=== PATIENT | female | born 1955 | race Caucasian/White ===

== ENCOUNTER 2016-10-01 19:13 | Emergency (ER) | payer MEDICARE, MEDICAID ==
[2016-10-01 19:42] VITALS: TEMP 98.6; BMI 24.2
--- NOTE | 2016-10-01 20:39 | DIRPT ---
CLINICAL DATA: 61-year-old female with fall and left hip pain. EXAM: LEFT HIP (WITH PELVIS) 2-3 VIEWS COMPARISON: None. FINDINGS: There is no acute fracture or dislocation. There are bilateral osteoarthritic changes of the hips, more prominent on the right. Go a single surgical clips noted in the left hemipelvis. Moderate stool noted in the rectosigmoid. IMPRESSION: No acute fracture or dislocation. Electronically Signed By: Rashad Desai M.D. On: 10/01/2016 20:36
--- NOTE | 2016-10-01 21:28 | EDPRACDOC ---
- General Information Chief Complaint: Lower Leg Pain Stated Complaint: LEG PAIN, NO INJURY Time Seen by Provider: 10/01/16 20:01 Information Source: Patient Mode Of Arrival: Car Home Medications: Home Medications Simvastatin 40 mg PO DAILY 03/27/15 Fluoxetine HCl [Prozac] 80 mg PO DAILY 07/17/15 Cetirizine HCl [Zyrtec] 10 mg PO DAILY 10/12/15 Bupropion HCl [Bupropion HCl Sr] 200 mg PO BID 03/22/16 Buspirone HCl [Buspar] 10 mg PO TID 03/22/16 Dextroamphetamine/Amphetamine [Adderall Xr 20 mg Capsule] 20 mg PO DAILY Mometasone Furoate [Nasonex] 17 gm HERBER DAILY 03/22/16 Dextroamphetamine/Amphetamine [Adderall Xr 10 mg Capsule] 10 mg PO DAILY Lisinopril [Prinivil] 10 mg PO DAILY 05/24/16 Meloxicam [Mobic] 15 mg PO DAILY 05/24/16 Oxycodone HCl/Acetaminophen [Percocet 5-325 mg Tablet] 1 - 2 tab PO Q4H PRN #30 tab 05/25/16 Cyclobenzaprine HCl [Flexeril] 10 mg PO TID #21 tab 10/01/16 Prednisone [Deltasone, Orasone] 2 tabs PO DAILY #20 tab 10/01/16 Allergies/Adverse Reactions: Allergies Allergy/AdvReac Type Severity Reaction Status Date / Time No Known Allergies Allergy Verified 03/23/16 12:46 - History of Present Illness Onset: 3-4 weeks ago HPI: PT PRESENTS TODAY WITH LOW BACK PAIN X 3 WEEKS. PT STATES THAT SHE WAS ON A SWING AND SLIPPED OFF, FALLING ABOUT 1 FOOT TO THE GROUND. STATES PAIN RADIATES FROM HER LEFT HIP TO LEFT THIGH. DENIES URINARY SYMPTOMS, INCONTINENCE, RASHES, ABD PAIN. PT AMBULATES BACK AND FORTH TO THE BATHROOM WITH ONLY MILDLY EXPRESSED PAIN IN HER GAIT. Pain Location: Reports: Left, Buttock Pain Radiates To: Reports: Thigh Pain Caused By: Reports: Fall Relevant History: Reports: None Pain Severity: Reports: Moderate Pain Quality: Reports: Aching, Sharp Worsened By: Reports: Walking Associated Signs and Symptoms: Reports: None ED Past Medical History - History Reviewed Yes Nurses notes reviewed and agree except as marked - Patient Medical History Neurological History: Reports: Migraine Cardiac History: Reports: Hypertension, Hypercholesterolemia Respiratory History: Reports: Asthma Psychological History: Reports: Depression, Anxiety Surgical History: Reports: Hysterectomy, Tonsillectomy/Adnoidectomy, Other (BTL) . Denies: Cholecystectomy - Social Medical History Smoking Status: Never smoker EDM Review of Systems - Review of Systems ROS Negative Except as Marked: Yes All systems reviewed and were negative except as marked Constitutional: No Symptoms Reported Respiratory: No Symptoms Reported Cardiovascular: No Symptoms Reported Gastrointestinal: No Symptoms Reported Genitourinary: No Symptoms Reported Neurological: No Symptoms Reported Musculoskeletal: Back Integumentary: No Symptoms Reported - Physical Exam Constitutional: Alert (Awake), No apparent distress Oriented to: Time, Person, Place Last recorded Vital Signs: Last Vital Signs Temp 98.6 F 10/01/16 19:40 Pulse 90 10/01/16 19:40 Resp 18 10/01/16 19:40 BP 117/69 10/01/16 19:40 Pulse Ox 92 10/01/16 19:40 Oxygen Pulse Oxygen Saturation 92 O2 Device Room Air Oxygen Flow Rate Fraction of Inspired Oxygen ( FIO2) - HEENT Head: Normal Eye Exam: Normal Neck: Normal, Denies Pain, Midline - Respiratory/Cardiovascular Respiratory: Normal - CTA Cardiovascular: Normal - GI Palpation: Normal Tenderness: Non tender - Musculoskeletal Back: Lumbar TTP, No Palpable Step-off Extremities: Normal - Integumentary Skin: Normal Lymphatics: Normal - Neurologic Cerebellar: Normal Mood Description: Normal Thought: Coherent Perception: Normal Decision Time to Discharge: 21:27 - Departure Disposition: Home Condition: Good Final Diagnosis: Lumbar radiculopathy Instructions: Sciatica (ED) Education/Counseling Given To: Patient Education/Counseling Given Regarding: Diagnosis, Treatment, Follow Up Referrals: Nancy Eldridge MD [Primary Care Provider] - One Week Prescriptions: New Cyclobenzaprine HCl [Flexeril] 10 mg PO TID #21 tab Prednisone [Deltasone, Orasone] 2 tabs PO DAILY #20 tab No Action Simvastatin 40 mg PO DAILY Fluoxetine HCl [Prozac] 80 mg PO DAILY Cetirizine HCl [Zyrtec] 10 mg PO DAILY Buspirone HCl [Buspar] 10 mg PO TID Bupropion HCl [Bupropion HCl Sr] 200 mg PO BID Mometasone Furoate [Nasonex] 17 gm HERBER DAILY Dextroamphetamine/Amphetamine [Adderall Xr 20 mg Capsule] 20 mg PO DAILY Meloxicam [Mobic] 15 mg PO DAILY Lisinopril [Prinivil] 10 mg PO DAILY Dextroamphetamine/Amphetamine [Adderall Xr 10 mg Capsule] 10 mg PO DAILY Oxycodone HCl/Acetaminophen [Percocet 5-325 mg Tablet] 1 - 2 tab PO Q4H PRN # 30 tab PRN Reason: Pain Additional Instructions: HEATING PADS TO LOWER BACK TO HELP WITH PAIN. FOLLOW UP WITH PCP IN 2-3 DAYS IF NEEDED.
[2016-10-01 21:40] VITALS: BP 124/72; PULSE 92
== END 2016-10-01 21:39 | disposition home or self-care (01) ==
LOC: EDMC 19:13
DX: M54.16 Radiculopathy, lumbar region (principal)
CPT/HCPCS: 73502; 99282